=== PATIENT | male | born 1990 | race Caucasian/White ===

== ENCOUNTER 2021-09-14 15:55 | Emergency (ER) | payer OTHER ==
[2021-09-14] MEDS ORDERED: DEXAMETHASONE 10 MG/ML VIAL PO STA (16:24)
[2021-09-14] MEDS ORDERED: KETOROLAC 30 MG/ML VIAL IM STA (16:24)
[2021-09-14] MEDS ORDERED: CHERRY SYRUP 10 ML UDC PO ONE (16:24)
[2021-09-14] MEDS ORDERED: HYDROmorphone 1 MG/ML CARPUJECT IM STA (16:24)
--- NOTE | 2021-09-14 16:26 | ED Physician Documentation ---
PD HPI BACK PAIN - Stated complaint Stated Complaint: BACK PAIN - Chief complaint Chief Complaint: Back Pain - History obtained from History obtained from: Patient - History of Present Illness Timing - onset: Yesterday Timing - duration: Days (2) Timing - details: Abrupt onset (onset of some lumbar pain while lifting heavy working out, with pain worse later and into evening. Pain unrelenting overnight and into today, worse with lying down and with moving, but not resolved with rest. Radiates down lateral left leg.), Still present Location: Lower, Right, Left Quality: Pain, Spasm, Sharp Associated symptoms: Numbness (mild intermittent lateral left thigh.). No: Fever, Weakness, Incontinent of urine Improves with: No: Rest Worsened by: Movement, Other (flat position) Contributing factors: Lifting, Twisting Similar symptoms before: Diagnosis (had herniated disc years ago around 2015, that took 6 months of physical therapy and meds to resolve (NSAIDs per patient; minimal pain meds).) Recently seen: Not recently seen Review of Systems Constitutional: denies: Fever, Chills Nose: denies: Rhinorrhea / runny nose, Congestion Throat: denies: Sore throat Cardiac: denies: Chest pain / pressure Respiratory: denies: Cough GI: denies: Abdominal Pain, Nausea, Vomiting : denies: Dysuria Skin: denies: Rash, Lesions Musculoskeletal: reports: Back pain. denies: Neck pain Neurologic: reports: Numbness. denies: Focal weakness PD PAST MEDICAL HISTORY - Past Medical History Cardiovascular: None Respiratory: None Endocrine/Autoimmune: None Musculoskeletal: Other (denies chronic back pain. Had HNP with back pain for about 6 months in 2016. No surgical/specialty care, just PT.) - Past Surgical History Past Surgical History: No - Present Medications Home Medications: Ambulatory Orders Medication Instructions Recorded Confirmed HYDROcod/ACETAM 5/325 [[place] 5/325] 1 ea PO Q6H PRN #18 tablet 09/14/21 Naproxen 500 mg PO BID #20 tab.sr 09/14/21 methocarbamoL [Robaxin] 500 mg PO Q6H PRN #30 tablet 09/14/21 - Allergies Allergies/Adverse Reactions: Allergies Allergy/AdvReac Type Severity Reaction Status Date / Time No Known Drug Allergies Allergy Verified 09/14/21 16:03 PD ED PE NORMAL - Vitals Vital signs reviewed: Yes - General General: Alert and oriented X 3, Well developed/nourished, Other (appears in significant pain, but is standing and some pacing to be comfortable. Pain increases with bending and twist, so has guarded ROM. ) - Neck Neck: Supple, no meningeal sign, No adenopathy - Cardiac Cardiac: RRR, No murmur - Respiratory Respiratory: Clear bilaterally - Abdomen Abdomen: Soft, Non tender - Back Back: No CVA TTP, No spinal TTP (is not tender to palpation in muscles adjacent to spine, but is hurting in that area, mostly left of lower paralumbar. ) - Derm Derm: Normal color, Warm and dry, No rash - Neuro Neuro: Alert and oriented X 3, No motor deficit, No sensory deficit (normal sensation to touch/pinprick in legs except slight decrease sensation lateral left thigh. ), Normal speech Results - Vitals Vitals: Vital Signs - 24 hr 09/14/21 09/14/21 16:01 17:53 Temperature 36.7 C Heart Rate 94 64 Respiratory 18 12 Rate Blood Pressure 115/85 H 128/76 O2 Saturation 96 98 Oxygen O2 Source Room air - Rads (name of study) lumbar CT Radiology: Prelim report reviewed (L5?S1 HNP with some moderate canal stenosis. No fractures. ), See rad report PD MEDICAL DECISION MAKING - ED course Complexity details: reviewed results (he states history of HNP years ago, so unknown if current disc abdnormality is same or is more prominent now without comparison. Prior imaging through [facility], so they will need to obtain prior images. Patient with sciatic distribution of pain and does not have caudal symptoms per se. ), re-evaluated patient (he is having reasonable improvement of pain with IM meds in ER. ), considered differential (abrupt pain low back with sciatic area radiation. Can get imaging to eval. ), d/w patient Departure - Departure Disposition: 01 Home, Self Care Clinical Impression: Radicular pain Low back strain Qualifiers: Encounter type: initial encounter Qualified Code(s): S39.012A - Strain of muscle, fascia and tendon of lower back, initial encounter Condition: Stable Record reviewed to determine appropriate education?: Yes Instructions: ED Sciatica Follow-Up: [facility] [Provider Group] Prescriptions: Naproxen 500 mg PO BID #20 tab.sr HYDROcod/ACETAM 5/325 [[place] 5/325] 1 ea PO Q6H PRN #18 tablet PRN Reason: Pain methocarbamoL [Robaxin] 500 mg PO Q6H PRN #30 tablet PRN Reason: Spasms Comments: Gentle stretching for the back. Light activity such as stretching and walking are good. No heavy use of the back. Off work for 1 or 2 days and then light duty for another 2 or 3. Anti-inflammatory such as naproxen twice daily with food. Add Robaxin muscle relaxant if needed for spasms and stiffness. Add Tylenol if needed for pain. To that add hydrocodone narcotic pain medicine every 4-6 hours if needed for worse pain. This would be intended short-term. Physical modalities of treatment such as physical therapy, massage, chiropractic are all good as well. Follow-up with your primary care this coming week, call for an appointment. They can see how much better he improved you are and decide on further treatments. Your CT scan shows a disc protrusion at L5-S1 level. It is hard to know whether this is the same degree of herniated disc that you have had previously or if it is larger peers. Comparison with prior imaging would be most effective. I transmitted prescriptions to [facility] pharmacy in [place]. I am prescribing a short course of narcotic pain medication for you. These are potentially dangerous and addictive medications that should be used carefully. These medications may constipate you. Take an ioua-acg-[id number] stool softener such as docusate twice daily with plenty of water while taking these medications. If you go 24 hours without a bowel movement, take [id number] MiraLAX, per package instructions. Do not drink or drive while taking these medications. If you received narcotic or sedating medications while in the emergency department do not drive for 24 hours. Store this medication in a safe, secure place and out of reach of children. It is a violation of federal law to give or sell this medication to another person or to use in a manner other than prescribed. The ED will not refill narcotic prescriptions, including prescriptions lost or stolen. You can dispose of unwanted medications at the [facility]'s office or at several pharmacies such as [facility]. Forms: Activity restrictions Discharge Date/Time: 09/14/21 17:59
--- NOTE | 2021-09-14 17:13 | CT Report ---
PROCEDURE: LUMBAR SPINE WO INDICATIONS: abrupt back pain working out TECHNIQUE: Noncontrast 3 mm thick sections acquired from the T12 level to the sacrum. Sagittal and coronal refo rmats were constructed. For radiation dose reduction, the following was used: automated exposure co ntrol, adjustment of mA and/or kV according to patient size. COMPARISON: None. FINDINGS: Image quality: Excellent. Bones: There is normal bony alignment. No acute vertebral body compression fractures. No suspiciou s lytic or blastic bony lesions. Central spinal caliber is of normal overall caliber. No pars defec ts. T12-L1: Normal in appearance. L1-L2: Normal in appearance. L2-L3: Normal in appearance. L3-L4: Normal in appearance. L4-L5: Normal in appearance. L5-S1: Mild loss of disc height is seen. There is a central/left disc extrusion seen, as on series 3 images 76 and 77. At least moderate central canal narrowing is seen at this level. Likely mild bila teral neuroforaminal narrowing can be seen. Soft tissues: No retroperitoneal masses or hematomas. Visualized aorta is normal in caliber. IMPRESSION: At the L5-S1 level, there is a central/left disc protrusion with at least moderate associated central canal narrowing. If it would be helpful for clinical management decision making, please consider a dedicated, schedule d lumbar MRI for further evaluation (assuming that there is no contraindication). Reviewed by: Vladimir Atwood MD on 09/14/2021 4:11 PM [facility] Approved by: Vladimir Atwood MD on 09/14/2021 4:11 PM [facility] Station ID: [id number]
[2021-09-14] MEDS ORDERED: CYCLOBENZAPRINE 10 MG Prepack 2 PO PRN (17:36)
[2021-09-14] MEDS ORDERED: HYDROcod/ACET 5/325 Prepack 4 PO STA (17:36)
[2021-09-14 17:59] VITALS: BP 128/76
== END 2021-09-14 17:59 | disposition home or self-care (01) ==
LOC: ED 15:55
DX: S39.012A Strain of muscle, fascia and tendon of lower back, initial encounter (principal); X50.0XXA Overexertion from strenuous movement or load, initial encounter; X50.9XXA Other and unspecified overexertion or strenuous movements or postures, initial encounter; Y93.B9 Activity, other involving muscle strengthening exercises
CPT/HCPCS: 72131; 96372; 99282; 99284; A9270; J1170

== ENCOUNTER 2022-06-07 12:30 | Emergency (ER) | payer OTHER ==
[2022-06-07 13:05] VITALS: BP 134/79
[2022-06-07 14:53] LABS: CALCIUM 9.2 mg/dL (8.5-10.3); CREATININE 1.1 mg/dL (0.6-1.2); POTASSIUM 4.5 mmol/L (3.5-5.0)
--- NOTE | 2022-06-07 15:29 | ED Physician Documentation ---
PD HPI URI - Stated complaint Stated Complaint: C+ - Chief complaint Chief Complaint: Resp - History obtained from History obtained from: Patient - Additional information Additional information: Patient is a 31-year-old male who tested positive for COVID-19 at home and is presenting to the ER for Paxlovid prescription. Patient started with symptoms this morning. His [id number], daughter and are at home also ill with with COVID-19. His nigclh-xo-iqt was prescribed Paxlovid And reported that she was feeling much better today so patient stated he was also interested in getting the medication.Patient denies any medical history. He has been vaccinated for COVID-19. He reports having low-grade fever, ear pain and nonproductive cough.He is otherwise been feeling well and denies any labored breathing. Review of Systems Constitutional: reports: Fever Ears: reports: Ear pain Nose: reports: Congestion Respiratory: reports: Cough. denies: Dyspnea GI: denies: Abdominal Pain : denies: Dysuria Skin: denies: Rash Neurologic: denies: Headache PD PAST MEDICAL HISTORY - Past Medical History Past Medical History: No Cardiovascular: None Respiratory: None Endocrine/Autoimmune: None Musculoskeletal: Other - Past Surgical History Past Surgical History: No - Present Medications Home Medications: Ambulatory Orders Medication Instructions Recorded Confirmed No Known Home Medications 06/07/22 06/07/22 - Allergies Allergies/Adverse Reactions: Allergies Allergy/AdvReac Type Severity Reaction Status Date / Time No Known Drug Allergies Allergy Verified 06/07/22 13:04 - Social History Does the pt smoke?: No Smoking Status: Never smoker PD ED PE NORMAL - General General: Alert and oriented X 3, No acute distress, Well developed/nourished - HEENT HEENT: Atraumatic, Ears normal, Moist mucous membranes - Neck Neck: Supple, no meningeal sign - Cardiac Cardiac: RRR, Strong equal pulses - Respiratory Respiratory: No respiratory distress, Clear bilaterally - Abdomen Abdomen: Soft, Non tender - Derm Derm: Warm and dry - Extremities Extremities: No edema - Neuro Neuro: Normal speech Results - Vitals Vitals: Vital Signs - 24 hr 06/07/22 13:00 Temperature 37.2 C Heart Rate 88 Respiratory 16 Rate Blood Pressure 134/79 H O2 Saturation 96 Oxygen O2 Source Room air - Labs Labs: Laboratory Tests 06/07/22 14:39 Sodium 136 Potassium 4.5 Chloride 101 Carbon Dioxide 28 Anion Gap 7.0 BUN 19 Creatinine 1.1 Estimated GFR (MDRD) 78 L Glucose 99 Calcium 9.2 PD MEDICAL DECISION MAKING - ED course ED course: Patient presenting for Paxlovid prescription. Chemistry panel was obtained In triage. I did review risks and benefits of the medication with the patient and he has opted not to take it at this time as he understands that it is not a cure for COVID-19 And may not change how his symptoms feel.I did offer to send a prescription of this to the patient's pharmacy's in case he changes his mind but he has declined.Patient is advised on concerning symptoms to return for. Departure - Departure Disposition: 01 Home, Self Care Clinical Impression: COVID-19, Otalgia of both ears Condition: Stable Instructions: ED Otitis Media Serous Adult, ED Viral Syndrome Comments: You have tested positive at home for COVID-19.You were initially interested in Paxlovid but after discussion you have opted to not take this medication. Please continue with using acetaminophen or ibuprofen as needed for fevers and body aches, hydration and rest. If you have any worsening symptoms please consider return to the ER. Discharge Date/Time: 06/07/22 15:36
== END 2022-06-07 15:36 | disposition home or self-care (01) ==
LOC: ED 12:30
DX: U07.1 COVID-19 (principal); H92.03 Otalgia, bilateral
CPT/HCPCS: 36415; 80048; 99282; 99283